=== PATIENT | female | born 1940 | race Caucasian/White ===

== ENCOUNTER → 2018-03-28 | Outpatient (CLI) | payer OTHER, BC ==
[~2018-03-28] MED LIST: ALBUTEROL INH; AMBEREN; CALTRATE-600 W1 EACH PO; CLARITIN10 MG PO; FIRST-OMEPR2 MG/1 ML PO; FLEXERIL PO; HYDROCHLOROTHIA25 M1 PO; HYDROCODONE-CH473 ML; IBUPROFEN 800800 M1 PO; IRON; IRON325 PO; MINOCYCLINE HC100 M2; MIRALAX17 GM PO; OMEPRAZOLE PO; PEPCID40 MG PO; POTASSIUM99 M1; VOLTAREN GEL 1100 G1 TOP; ZOLOFT 50 MG TA50 M1; ZYRTEC10 M2 PO; [UNRECOGNIZED DRUG - REMARK] PO
--- NOTE | 2018-03-28 15:55 | 2DMMODE ---
[place] [address] 2 D/M-MODE ECHOCARDIOGRAM Name: FLAQUITO GRIFFIN Room: [facility]#: [id number] Admission: 03/28/18 Attend Phys: Ann-Marie Funez Discharge: Date of : 42 Date of Service: 03/28/18 1555 Report #: [id number] THIS REPORT FOR: //name// APPROVED REPORT Study performed: 03/28/2018 14:15:44 EXAM: Comprehensive 2D, Doppler, and color-flow Echocardiogram Patient Location: Out-Patient Status: routine BSA: 1.84 HR: 70 bpm BP: 130/80 mmHg Other Information Study Quality: Good Indications Dyspnea 2D Dimensions IVSd: 11.25 (7-11mm) LVOT Diam: 20.10 (18-24mm) LVDd: 48.93 mm PWd: 11.25 (7-11mm) Ascending Ao: 30.55 (22-36mm) LVDs: 37.32 (25-40mm) Aortic Root: 29.46 mm Volumes Left Atrial Volume (Systole) LA ESV Index: 15.10 mL/m2 Aortic Valve AoV Peak Artur.: 0.84 m/s AO Peak Gr.: 2.84 mmHg LVOT Max P.92 mmHg AO Mean Gr.: 1.54 mmHg LVOT Mean P.40 mmHg LVOT Max V: 0.85 m/s AO V2 VTI: 20.02 cm LVOT Mean V: 0.54 m/s JOEY (VTI): 2.57 cm2 LVOT V1 VTI: 16.22 cm Mitral Valve E/A Ratio: 0.50 MV Decel. Time: 319.08 ms MV E Max Artur.: 0.48 m/s MV PHT: 92.53 [place] [address] 2 D/M-MODE ECHOCARDIOGRAM Name: FLAQUITO GRIFFIN Room: [facility]#: [id number] Admission: 03/28/18 Attend Phys: Ann-Marie Funez Discharge: Date of : 42 Date of Service: 03/28/18 1555 Report #: [id number] MVA (PHT): 2.38 cm2 TDI E/Lateral E': 5.33 E/Medial E': 6.00 Medial E' Artur.: 0.08 m/s Lateral E' Artur.: 0.09 m/s Pulmonary Valve PV Peak Artur.: 0.90 m/s PV Peak Gr.: 3.23 mmHg Left Ventricle The left ventricle is normal size. There is normal LV segmental wall motion. There is normal left ventricular wall thickness. Left ventricular systolic function is mildly decreased. LVEF is 45%. Grade I - abnormal relaxation pattern. Right Ventricle The right ventricle is normal size. The right ventricular systolic function is normal. Atria The left atrium size is normal. The right atrium size is normal. Aortic Valve Mild aortic valve sclerosis. Trace aortic regurgitation. There is no aortic valvular stenosis. Mitral Valve The mitral valve is normal in structure. Mild mitral regurgitation. No evidence of mitral valve stenosis. Tricuspid Valve The tricuspid valve is normal in structure. There is no tricuspid valve regurgitation noted. Pulmonic Valve The pulmonary valve is normal in structure. Mild pulmonic regurgitation. Great Vessels The aortic root is normal in size. IVC is normal in size and collapses >50% with inspiration. Pericardium There is no pericardial [place] [address] 2 D/M-MODE ECHOCARDIOGRAM Name: FLAQUITO GRIFFIN [id number] Admission: 03/28/18 Attend Phys: Ann-Marie Funez Discharge: Date of : 42 Date of Service: 03/28/18 1555 Report #: [id number] <Conclusion> The left ventricle is normal size. There is normal left ventricular wall thickness. Left ventricular systolic function is mildly decreased. LVEF is 45%. Grade I - abnormal relaxation pattern. The right ventricle is normal size. The left atrium size is normal. Mild aortic valve sclerosis. Trace aortic regurgitation. There is no aortic valvular stenosis. The mitral valve is normal in structure. Mild mitral regurgitation. The tricuspid valve is normal in structure. IVC is normal in size and collapses >50% with inspiration. There is no pericardial effusion. There is normal LV segmental wall motion. <ELECTRONICALLY SIGNED> By: Carson Zamora MD, FACC 03/28/18 1555 1555 1555 Carson Zamora MD, FACC /INF
== END ==
LOC: M.CRD 13:53
DX: I08.0 Rheumatic disorders of both mitral and aortic valves (principal); R60.0 Localized edema; J45.20 Mild intermittent asthma, uncomplicated

== ENCOUNTER → 2018-04-22 | Outpatient (CLI) | payer OTHER, BC ==
[2018-04-22 13:04] LABS: CALCIUM 10.2 mg/dL (8.5-10.1); CREATININE 1.1 mg/dL (0.6-1.3); POTASSIUM 3.7 mmol/L (3.5-5.1)
== END ==
LOC: M.LAB 12:21
PROVIDERS: Nurse Practitioner
DX: R60.9 Edema, unspecified (principal); R06.02 Shortness of breath; R53.83 Other fatigue

== ENCOUNTER → 2018-09-13 | Outpatient (CLI) | payer OTHER, BC ==
--- NOTE | 2018-09-23 07:55 | SLEEP ---
[address] [address] SLEEP STUDY REPORT Name: FLAQUITO GRIFFIN Room: [facility]#: [id number] Admission: 09/13/18 Attend Phys: Kristina Green RN Discharge: Date of : 42 Report #: [id number] THIS REPORT FOR: //name// CC: Gwyn Green This study has been reviewed in its entirety by a board certified sleep specialist DATE OF SERVICE: 09/13/2018 TYPE OF REPORT: Sleep study. REFERRING PHYSICIAN: JOO Gan. The patient is a 77-year-old who weighs 206 pounds with a BMI of 44.6. The patient's [place] score was 2. The patient underwent a home sleep study performed at [facility]. Total recording time was 531 minutes. During the night study, the patient had 69 obstructive apneas, no central or mixed apneas and 55 hypopneas. The patient's apnea-hypopnea index was 14 per hour with a supine index of 14 per hour as well. Nocturnal oximetry study revealed an average oxygen saturation of 94% with lows of 82%. Twenty minutes were spent at oxygen saturation less than 90%. Mean heart rate was 72 beats per minute. IMPRESSION: 1. Mild sleep apnea-hypopnea syndrome with an apnea/hypopnea index of 14 per hour. 2. Nocturnal hypoxia secondary to obstructive sleep apnea. RECOMMENDATIONS: 1. Weight loss is initially advised. 2. If the patient remains clinically symptomatic or has other comorbid symptoms, then consider treating the patient's sleep apnea with either oral appliance as recommended by the dentist versus a trial of CPAP titration. 3. The patient should be followed up after treatment to assess compliance and to document clinical improvement. 4. Avoid HOT [place]LE [place] [address] SLEEP STUDY REPORT Name: FLAQUITO GRIFFIN Room: [facility]#: [id number] Admission: 09/13/18 Attend Phys: Kristina Green RN Discharge: Date of : 42 Report #: [id number] 5. Cautioned regarding driving until symptoms of sleep apnea resolve with the above recommendations. <ELECTRONICALLY SIGNED> By: Buzz Underwood MD 09/23/18 0755 [id number] 2230Buzz Underwood MD /nt
== END ==
LOC: M.SLEEPLAB 11:00
DX: G47.33 Obstructive sleep apnea (adult) (pediatric) (principal); R09.02 Hypoxemia; R53.82 Chronic fatigue, unspecified

== ENCOUNTER → 2019-03-15 | Outpatient (CLI) | payer OTHER, BC | LOC: M.NUC 03-08 14:01 | DX: E83.52 Hypercalcemia (principal); R05 Cough; K21.9 Gastro-esophageal reflux disease without esophagitis; J45.909 Unspecified asthma, uncomplicated; G47.33 Obstructive sleep apnea (adult) (pediatric); I10 Essential (primary) hypertension; F32.9 Major depressive disorder, single episode, unspecified; Z79.899 Other long term (current) drug therapy; Z88.2 Allergy status to sulfonamides; Z88.8 Allergy status to other drugs, medicaments and biological substances ==

== ENCOUNTER → 2019-06-13 | Outpatient (CLI) | payer OTHER, BC ==
[2019-06-13 14:35] LABS: CALCIUM 10.1 mg/dL (8.5-10.1); CREATININE 1.2 mg/dL (0.6-1.3); POTASSIUM 4.2 mmol/L (3.5-5.1)
== END ==
LOC: M.LAB 13:38
PROVIDERS: Nurse Practitioner
DX: R06.02 Shortness of breath (principal)

== ENCOUNTER → 2019-06-27 | Outpatient (CLI) | payer OTHER, BC ==
--- NOTE | 2019-06-27 13:51 | 2DMMODE ---
[place] [address] 2 D/M-MODE ECHOCARDIOGRAM Name: FLAQUITO GRIFFIN Room: [facility]#: [id number] Admission: 06/27/19 Attend Phys: Ann-Marie Funez Discharge: Date of : 42 Date of Service: 06/27/19 1351 Report #: [id number] THIS REPORT FOR: //name// APPROVED REPORT Study performed: 06/27/2019 10:02:40 EXAM: Comprehensive 2D, Doppler, and color-flow Echocardiogram Patient Location: Out-Patient BSA: 1.81 HR: 70 bpm BP: 142/88 mmHg Other Information Study Quality: Good Indications Dyspnea 2D Dimensions IVSd: 11.94 (7-11mm) LVOT Diam: 20.63 (18-24mm) LVDd: 45.31 mm PWd: 11.05 (7-11mm) Ascending Ao: 28.85 (22-36mm) LVDs: 26.37 (25-40mm) Aortic Root: 28.52 mm Volumes Left Atrial Volume (Systole) LA ESV Index: 13.70 mL/m2 Aortic Valve AoV Peak Artur.: 1.01 m/s AO Peak Gr.: 4.12 mmHg LVOT Max P.44 mmHg AO Mean Gr.: 1.99 mmHg LVOT Mean P.51 mmHg LVOT Max V: 0.93 m/s AO V2 VTI: 18.94 cm LVOT Mean V: 0.55 m/s JOEY (VTI): 3.18 cm2 LVOT V1 VTI: 18.00 cm Mitral Valve E/A Ratio: 0.65 MV Decel. Time: 252.78 ms MV E Max Artur.: 0.59 m/s MV PHT: 73.31 ms MVA (PHT): 3.00 cm2 [place] [address] 2 D/M-MODE ECHOCARDIOGRAM Name: FLAQUITO GRIFFIN Room: [facility]#: [id number] Admission: 06/27/19 Attend Phys: Ann-Marie Funez Discharge: Date of : 42 Date of Service: 06/27/19 1351 Report #: [id number] TDI E/Lateral E': 7.38 E/Medial E': 7.38 Medial E' Artur.: 0.08 m/s Lateral E' Artur.: 0.08 m/s Pulmonary Valve PV Peak Artur.: 0.79 m/s PV Peak Gr.: 2.49 mmHg Left Ventricle The left ventricle is normal size. There is global hypokinesis of the left ventricle. There is normal left ventricular wall thickness. Left ventricular systolic function is mildly decreased. LVEF is 40-45%. Grade I - abnormal relaxation pattern. Right Ventricle The right ventricle is normal size. The right ventricular systolic function is normal. Atria The left atrium size is normal. The right atrium size is normal. Aortic Valve The aortic valve is normal in structure. Mild aortic regurgitation. There is no aortic valvular stenosis. Mitral Valve The mitral valve is normal in structure. Mild mitral regurgitation. No evidence of mitral valve stenosis. Tricuspid Valve The tricuspid valve is normal in structure. There is no tricuspid valve regurgitation noted. Pulmonic Valve The pulmonary valve is normal in structure. There is no pulmonic valvular regurgitation. Great Vessels The aortic root is normal in size. IVC is normal in size and collapses >50% with inspiration. Pericardium There is no [place] [address] 2 D/M-MODE ECHOCARDIOGRAM Name: FLAQUITO GRIFFIN [id number] Admission: 06/27/19 Attend Phys: Ann-Marie Funez Discharge: Date of : 42 Date of Service: 06/27/19 135 Report #: [id number] <Conclusion> LVEF is 40-45%. There is global hypokinesis of the left ventricle. Mild aortic regurgitation. Mild mitral regurgitation. <ELECTRONICALLY SIGNED> By: Boone Wong MD, [facility] 06/27/19 135 135 50 Boone Wong MD, FACC /INF
== END ==
LOC: M.CRD 09:37
DX: I08.0 Rheumatic disorders of both mitral and aortic valves (principal); F32.9 Major depressive disorder, single episode, unspecified; E11.9 Type 2 diabetes mellitus without complications; K21.9 Gastro-esophageal reflux disease without esophagitis; G47.30 Sleep apnea, unspecified; Z79.899 Other long term (current) drug therapy

== ENCOUNTER 2019-09-15 09:41 | Emergency (ER) | payer OTHER, BC ==
[~2019-09-15] VITALS: Ht 142.2 cm; Wt 95.3 kg
[2019-09-15] MEDS ORDERED: BLOOD PRESSURE (09:53)
[2019-09-15 10:18] LABS: INFLUENZA A ANTIGEN Negative (Negative); INFLUENZA B ANTIGEN Negative (Negative)
[2019-09-15 11:28] LABS: ABSOLUTE EOSINOPHILS 0.1 thou/uL (0.0-0.7); ABSOLUTE LYMPHOCYTES 0.7 thou/uL (0.8-5.3); ABSOLUTE MONOCYTES 0.4 thou/uL (0.0-1.2); ABSOLUTE NEUTROPHILS 2.6 thou/uL (1.6-8.1); BASOPHILS 1.3 %; EOSINOPHILS 3.7 %; HEMATOCRIT 36.8 % (37.0-47.0); HEMOGLOBIN 12.6 gm/dL (12.0-15.0); LYMPHOCYTES 17.5 %; MCH 28.4 pg (26.0-34.0); MCHC 34.2 g/dL (28.0-37.0); MCV 83.2 fL (80.0-100.0); MONOCYTES 11.2 %; MPV 9.5 fl. (7.2-11.1); NUCLEATED RBCS 0 /100WBC; PLATELET COUNT* 159 thou/uL (150-400); POLYS 66.3 %; RBC 4.42 mil/uL (4.20-5.00); RDW-CV 15.1 % (10.5-14.5); WBC 3.9 thou/uL (4.0-11.0)
[2019-09-15 11:32] LABS: CALCIUM 9.6 mg/dL (8.5-10.1); CREATININE 1.1 mg/dL (0.6-1.3); POTASSIUM 4.1 mmol/L (3.5-5.1)
[2019-09-15] MEDS ORDERED: MUCUS RELIEF1200 MG PO (11:45)
[2019-09-15 11:46] LABS: ALBUMIN 3.6 g/dL (3.4-5.0); TOTAL BILIRUBIN 0.4 mg/dL (<0.1-1.0); TOTAL PROTEIN 7.2 g/dL (6.4-8.2)
[2019-09-15 11:54] VITALS: BP 140/49
== END 2019-09-15 11:55 | disposition home or self-care (01) ==
LOC: M.ERS 09:41
PROVIDERS: Personal Emergency Response Attendant
DX: J06.9 Acute upper respiratory infection, unspecified (principal); I48.91 Unspecified atrial fibrillation; E66.9 Obesity, unspecified; M81.0 Age-related osteoporosis without current pathological fracture; Z68.42 Body mass index [BMI] 45.0-49.9, adult; Z87.442 Personal history of urinary calculi; Z90.710 Acquired absence of both cervix and uterus; Z88.1 Allergy status to other antibiotic agents; Z88.2 Allergy status to sulfonamides; Z88.6 Allergy status to analgesic agent; Z88.8 Allergy status to other drugs, medicaments and biological substances

== ENCOUNTER 2020-09-16 11:47 | Emergency (ER) | payer OTHER, BC ==
[~2020-09-16] VITALS: Ht 144.8 cm; Wt 94.3 kg
[~2020-09-16 11:47] MED LIST changes: +BLOOD PRESSURE; +MUCUS RELIEF1200 MG PO
[2020-09-16] MEDS ORDERED: LASIX 40 MG TAB40 MG PO (12:18)
[2020-09-16 12:24] LABS: URINE BILIRUBIN NEGATIVE (Negative); URINE BLOOD TRACE (Negative); URINE CLARITY CLEAR; URINE COLOR YELLOW; URINE GLUCOSE-RANDOM NEGATIVE (Negative); URINE KETONES NEGATIVE (Negative); URINE LEUKOCYTES-REFLEX TRACE (Negative); URINE NITRITE-REFLEX NEGATIVE (Negative); URINE PROTEIN NEGATIVE (Negative); URINE SPECIFIC GRAVITY >= 1.030 (1.005-1.030); URINE UROBILINOGEN 0.2 E.U./dl (0.2-1.0)
[2020-09-16 12:33] LABS: BACTERIA-REFLEX 1-9 Few /HPF (None Seen); CASTS None Seen /LPF (None Seen); CRYSTALS None Seen /LPF (None Seen); MUCUS None Seen strn/LPF (None Seen); SQUAMOUS >10 Many /LPF (0-3); URINE RBC 0-2 Rare /HPF (0-2); URINE WBC-REFLEX 0-5 Rare /HPF (0-5)
[2020-09-16 12:38] LABS: ABSOLUTE BASOPHILS 0.1 thou/uL (0.0-0.2); ABSOLUTE EOSINOPHILS 0.1 thou/uL (0.0-0.7); ABSOLUTE LYMPHOCYTES 1.3 thou/uL (0.8-5.3); ABSOLUTE MONOCYTES 0.4 thou/uL (0.0-1.2); ABSOLUTE NEUTROPHILS 4.3 thou/uL (1.6-8.1); BASOPHILS 1.4 %; EOSINOPHILS 1.6 %; HEMATOCRIT 37.8 % (37.0-47.0); HEMOGLOBIN 12.6 gm/dL (12.0-15.0); MCH 27.9 pg (26.0-34.0); MCHC 33.4 g/dL (28.0-37.0); MCV 83.5 fL (80.0-100.0); MONOCYTES 6.2 %; MPV 9.7 fl. (7.2-11.1); NUCLEATED RBCS 0 /100WBC; PLATELET COUNT* 183 thou/uL (150-400); POLYS 69.8 %; RBC 4.53 mil/uL (4.20-5.00); RDW-CV 15.9 % (10.5-14.5); WBC 6.2 thou/uL (4.0-11.0)
[2020-09-16 12:46] LABS: CALCIUM 9.6 mg/dL (8.5-10.1); CREATININE 1.2 mg/dL (0.6-1.3); POTASSIUM 4.1 mmol/L (3.5-5.1)
[2020-09-16 12:51] LABS: ALBUMIN 3.4 g/dL (3.4-5.0); TOTAL BILIRUBIN 0.4 mg/dL (<0.1-1.0); TOTAL PROTEIN 6.7 g/dL (6.4-8.2)
[2020-09-16] MEDS ORDERED: MAGNESIUM250 M1 PO (13:16)
[2020-09-16] MEDS ORDERED: BIDIL TABLET1 EACH PO (13:16)
[2020-09-16] MEDS ORDERED: ALLEGRA ALLERGY60 MG PO (13:16)
[2020-09-16] MEDS ORDERED: POTASSIUM99 M1 PO (13:17)
[2020-09-16] MEDS ORDERED: ALBUTEROL2.5 MG/0.1 INH (13:17)
[2020-09-16] MEDS ORDERED: TESSALON PERLE100 M1 PO (13:17)
[2020-09-16] MEDS ORDERED: CARVEDILOL12.5 MG (13:17)
[2020-09-16] MEDS ORDERED: SINGULAIR4 M1 PO (13:18)
[2020-09-16] MEDS ORDERED: MACROBID 100 M100 M1 PO (13:48)
[2020-09-16] MEDS ORDERED: ZOFRAN ODT4 MG PO (13:48)
[2020-09-16 14:09] VITALS: BP 135/87
--- NOTE | 2020-09-16 17:38 | EKG ---
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[place] : 1940 Requested By: Gloria Alfonso Order Number: [id number] MD: Carson Zamora Measurements Intervals [place] Rate: 128 P: NE: QRS: -30 QRSD: 91 T: 73 QT: 302 QTc: 441 Interpretive Statements Atrial fibrillation Ventricular premature complex Left axis deviation Abnormal R-wave progression, early transition Consider anterior infarct Baseline wander in lead(s) II,III,aVF Compared to ECG 12/31/2005 11:41:49 Ventricular premature complex(es) now present Left-axis deviation now present Sinus rhythm no longer present Short NE interval no longer present Myocardial infarct finding still present Electronically Signed On 09-16-2020 17:38:25 CDT by Carson Zamora [email or web address] <ELECTRONICALLY SIGNED> By: Carson Zamora MD, [facility] 09/16/20 1738 1205 1205 Carson Zamora MD, [facility] /EPI
== END 2020-09-16 14:09 | disposition home or self-care (01) ==
LOC: M.ERS 11:47
PROVIDERS: Nurse Practitioner Family
DX: N39.0 Urinary tract infection, site not specified (principal); K57.32 Diverticulitis of large intestine without perforation or abscess without bleeding; I48.91 Unspecified atrial fibrillation; E66.9 Obesity, unspecified; Z68.42 Body mass index [BMI] 45.0-49.9, adult; Z88.5 Allergy status to narcotic agent; Z88.1 Allergy status to other antibiotic agents; Z88.2 Allergy status to sulfonamides; Z88.6 Allergy status to analgesic agent; Z88.8 Allergy status to other drugs, medicaments and biological substances; Z87.442 Personal history of urinary calculi

== ENCOUNTER → 2020-11-15 | Outpatient (CLI) | payer OTHER, BC ==
[~2020-11-15] MED LIST changes: +ALBUTEROL2.5 MG/0.1 INH; +ALLEGRA ALLERGY60 MG PO; +BIDIL TABLET1 EACH PO; +CARVEDILOL12.5 MG; +LASIX 40 MG TAB40 MG PO; +MACROBID 100 M100 M1 PO; +MAGNESIUM250 M1 PO; +POTASSIUM99 M1 PO; +SINGULAIR4 M1 PO; +TESSALON PERLE100 M1 PO; +ZOFRAN ODT4 MG PO
== END ==
LOC: M.ULTRA 09:00
PROVIDERS: ATTEND Family Medicine
DX: R74.8 Abnormal levels of other serum enzymes (principal); K21.9 Gastro-esophageal reflux disease without esophagitis; J45.909 Unspecified asthma, uncomplicated; G47.33 Obstructive sleep apnea (adult) (pediatric); I10 Essential (primary) hypertension; F32.9 Major depressive disorder, single episode, unspecified; Z79.899 Other long term (current) drug therapy; Z88.1 Allergy status to other antibiotic agents; Z88.5 Allergy status to narcotic agent; Z88.8 Allergy status to other drugs, medicaments and biological substances; Z88.2 Allergy status to sulfonamides

== ENCOUNTER → 2020-11-28 | Outpatient (CLI) | payer OTHER, BC | LOC: M.CT 08:52 | PROVIDERS: ATTEND Family Medicine | DX: R74.8 Abnormal levels of other serum enzymes (principal); K76.0 Fatty (change of) liver, not elsewhere classified; R19.7 Diarrhea, unspecified; R05 Cough; J45.20 Mild intermittent asthma, uncomplicated; Z91.09 Other allergy status, other than to drugs and biological substances; I10 Essential (primary) hypertension ==

== ENCOUNTER 2021-01-28 13:13 | Inpatient (IN) | payer OTHER, BC ==
[~2021-01-28] VITALS: Ht 149.9 cm; Wt 86.6 kg
--- NOTE | ~2021-01-28 | EKG ---
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1940 Requested By: Boone Wong Order Number: [id number] Reading MD: Measurements Intervals [place] Rate: 114 P: IA: QRS: 112 QRSD: 99 T: -29 QT: 316 QTc: 436 Interpretive Statements Atrial fibrillation Left posterior fascicular block Low voltage, precordial leads Borderline repolarization abnormality Compared to ECG 01/28/2021 13:30:25 Left posterior fascicular block now present Low QRS voltage now present Left anterior fascicular block no longer present Myocardial infarct finding no longer present T-wave abnormality no longer present [email or web address] By: 1735 1735 Epiphany EpiphanyMD /SUZAN
[2021-01-28 13:30] VITALS: BP 120/75
--- NOTE | 2021-01-28 13:36 | NUR ---
1320 PT UP TO ER BR, AMBULATORY INDEPENDENTLY. PT STATES SHE WAS WASHING HER HANDS AND THE SINK FELL. OBSERVED PT ON THE FLOOR, SINK ON FLOOR RIGHT BY THE PATIENT, WATER RUNNING ON FLOOR. OBSERVED PATIENT ON A SITTING POSITION ON THE FLOOR. OBSERVED A ABRASION ON PT'S RIGHT ELBOW. PT STATES PAIN 1/10, STINGING SENSATION. PT STATES THE SINK DID NOT LAND ON HER BUT LANDED RIGHT BESIDE HER. PT DID FALL AND LANDED ON HER BUTTOCKS. PT STATES THE ONLY PAIN SHE HAS IS HER RIGHT ELBOW. STAFF X 3 TRANSFERRED PT FROM FLOOR TO W/C, THEN TRANSFERRED PT FROM W/C TO STRETCHER TO ER RM #10. SPONGE BATH GIVEN TO PT TO CLEAN PT FROM DIRTY WATER FROM SINK. PT TOLERATED PROCEDURE WELL. [facility]ILDR[facility] [employer] ATTENDANT SHIRLEY NOTIFIED
[2021-01-28 13:41] LABS: ABSOLUTE BASOPHILS 0.1 thou/uL (0.0-0.2); ABSOLUTE MONOCYTES 0.7 thou/uL (0.0-1.2); ABSOLUTE NEUTROPHILS 4.5 thou/uL (1.6-8.1); BASOPHILS 1.2 %; EOSINOPHILS 0.8 %; HEMATOCRIT 40.4 % (37.0-47.0); HEMOGLOBIN 13.5 gm/dL (12.0-15.0); LYMPHOCYTES 16.1 %; MCH 27.7 pg (26.0-34.0); MCHC 33.3 g/dL (28.0-37.0); MCV 83.1 fL (80.0-100.0); MONOCYTES 11.3 %; MPV 9.2 fl. (7.2-11.1); NUCLEATED RBCS 0 /100WBC; PLATELET COUNT* 151 thou/uL (150-400); POLYS 70.6 %; RBC 4.86 mil/uL (4.20-5.00); RDW-CV 16.1 % (10.5-14.5); WBC 6.4 thou/uL (4.0-11.0)
[2021-01-28 13:52] LABS: CREATININE 1.3 mg/dL (0.6-1.3); POTASSIUM 3.8 mmol/L (3.5-5.1)
[2021-01-28 13:57] LABS: ALBUMIN 3.5 g/dL (3.4-5.0); TOTAL BILIRUBIN 0.4 mg/dL (<0.1-1.0); TOTAL PROTEIN 6.7 g/dL (6.4-8.2)
[2021-01-28 20:00] VITALS: BP 142/78
[2021-01-29] VITALS (7 sets, daily range): BP systolic 114–165; BP diastolic 51–100
[2021-01-29 01:46] LABS: HEMATOCRIT 40.7 % (37.0-47.0); HEMOGLOBIN 13.8 gm/dL (12.0-15.0); MCH 28.2 pg (26.0-34.0); MCHC 33.8 g/dL (28.0-37.0); MCV 83.3 fL (80.0-100.0); MPV 9.1 fl. (7.2-11.1); RBC 4.88 mil/uL (4.20-5.00); WBC 5.4 thou/uL (4.0-11.0)
[2021-01-29 02:00] LABS: CALCIUM 8.8 mg/dL (8.5-10.1); CREATININE 1.1 mg/dL (0.6-1.3); POTASSIUM 3.7 mmol/L (3.5-5.1)
--- NOTE | 2021-01-29 09:34 | EKG ---
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1940 Requested By: Cory Ramírez Order Number: [id number] MD: Boone Wong Measurements Intervals [place] Rate: 106 P: MI: QRS: -49 QRSD: 101 T: 90 QT: 327 QTc: 435 Interpretive Statements Atrial fibrillation Left anterior fascicular block Anterior infarct, old Nonspecific T abnormalities, lateral leads Compared to ECG 09/16/2020 12:05:57 Myocardial infarct finding still present Electronically Signed On 01-29-2021 9:33:53 CDT by Boone Wong [email or web address] <ELECTRONICALLY SIGNED> By: Boone Wong MD, FACC 01/29/21 0933 1330 1330 Boone Wong MD, FAC /EPI
--- NOTE | 2021-01-29 14:22 | NUR ---
RECIEVED REPORT FROM CB WATSON IN ER OF EXPECTED ADMISSION AT 1131- DX: PE, DIARRHEA, WEAKNESS, ARF- PT ARRIVED TO UNIT ROOM 221 VIA BED AT 1200- BIOPSYCHOLOGIST PLACED NOTED A-FIB, RATE CONTROLLED- PT A&O X4- CONT OF B/B- SBA WITH TRANSFERS FOR SAFETY- LCTA, DYSPNEA NOTED ON EXERTION- VSS, O2 SAT 98% ON RA- ABD SOFT/OBESE/NON-TEDNER, BS ACTIVE- DIRREHA NOTED THIS SHIFT- C-DIFF NOTED TO RESULT NEGATIVE- CARDIO CONSULTED FOR PIPIDA CLEARANCE AND GI R/T DIARRHEA- 2+ BLE PITTING EDEMA NOTED- BS AT TIME OF ADMISSION NOTED TO BE 170- PT DENIES ANY OPEN SOARS/WOUNDS- DENIES ANY C/O PAIN- CALL LIGHT AND PERSONAL BELONGINGS WITH IN REACH- ALL NEEDS MET AT THIS TIME
[2021-01-29 14:52] LABS: AMYLASE 42 U/L (25-115); LIPASE 236 U/L (73-393)
--- NOTE | 2021-01-29 16:20 | 2DMMODE ---
[place] [address] 2 D/M-MODE ECHOCARDIOGRAM Name: FLAQUITO GRIFFIN Room: [address] IN [facility]#: [id number] Admission: 01/28/21 Attend Phys: Terry Fry Discharge: Date of : 42 Date of Service: 01/29/21 1620 Report #: [id number] THIS REPORT FOR: cc: Ena Landaverde,Ena Aguilar,Boone Doherty MD [facility] ~ APPROVED REPORT Study performed: 01/29/2021 14:48:03 EXAM: Comprehensive 2D, Doppler, and color-flow Echocardiogram Patient Location: In-Patient Room #: [facility] Status: routine BSA: 1.80 HR: 101 bpm BP: 151/94 mmHg Rhythm: Atrial Fibrillation Other Information Study Quality: Good Indications Atrial Fibrillation 2D Dimensions IVSd: 8.54 (7-11mm) LVOT Diam: 20.38 (18-24mm) LVDd: 54.52 mm PWd: 8.33 (7-11mm) Ascending Ao: 30.86 (22-36mm) LVDs: 28.11 (25-40mm) Aortic Root: 30.70 mm Volumes Left Atrial Volume (Systole) LA ESV Index: 37.20 mL/m2 Aortic Valve AoV Peak Artur.: 1.05 m/s AO Peak Gr.: 4.45 mmHg LVOT Max P.14 mmHg AO Mean Gr.: 2.55 mmHg LVOT Mean P.57 mmHg LVOT Max V: 0.89 m/s AO V2 VTI: 16.71 cm LVOT Mean V: 0.59 m/s JOEY (VTI): 2.72 cm2 LVOT V1 VTI: 13.94 [place] [address] 2 D/M-MODE ECHOCARDIOGRAM Name: FLAQUITO GRIFFIN Room: [address] IN [facility].#: [id number] Admission: 01/28/21 Attend Phys: Terry Fry Discharge: Date of : 42 Date of Service: 01/29/21 1620 Report #: [id number] TDI Lateral E' Artur.: 0.12 m/s Pulmonary Valve PV Peak Artur.: 0.74 m/s PV Peak Gr.: 2.21 mmHg Tricuspid Valve RAP Estimate: 5.00 mmHg TR Peak Gr.: 29.18 mmHg RVSP: 34.00 mmHg PA Pressure: 34.00 mmHg Left Ventricle Left ventricle is mildly dilated. There is global hypokinesis of the left ventricle. There is normal left ventricular wall thickness. Left ventricular systolic function is mildly decreased. LVEF is 25-30%. This study is not technically sufficient to allow evaluation of the LV diastolic function due to atrial fibrillation. Right Ventricle The right ventricle is normal size. The right ventricular systolic function is normal. Atria Left atrium is mildly dilated. The right atrium size is normal. Aortic Valve Mild aortic valve sclerosis. Mild aortic regurgitation. There is no aortic valvular stenosis. Mitral Valve The mitral valve is normal in structure. Moderate mitral regurgitation. No evidence of mitral valve stenosis. Tricuspid Valve The tricuspid valve is normal in structure. Moderate tricuspid regurgitation. estimated pa pressure 35 mm Hg Pulmonic Valve The pulmonary valve is normal in structure. Trace pulmonic regurgitation. Great Vessels The aortic root is normal in size. IVC is normal in size and collapses >50% [place] [address] 2 D/M-MODE ECHOCARDIOGRAM Name: FLAQUITO GRIFFIN Room: [address]#: [id number] Admission: 01/28/21 Attend Phys: Terry Fry Discharge: Date of : 42 Date of Service: 01/29/21 1620 Report #: [id number] Pericardium There is no pericardial effusion. <Conclusion> Left ventricle is mildly dilated. LVEF is 25-30%. Left atrium is mildly dilated. Mild aortic regurgitation. Moderate mitral regurgitation. Moderate tricuspid regurgitation. estimated pa pressure 35 mm Hg <ELECTRONICALLY SIGNED> By: Boone Wong MD, [facility] 01/29/21 1620 162 19 Boone Wong MD, [facility] /INF
[2021-01-30 00:55] VITALS: BP 115/56
[2021-01-30 03:59] VITALS: BP 112/56
[2021-01-30 04:56] LABS: CALCIUM 8.8 mg/dL (8.5-10.1); CREATININE 1.1 mg/dL (0.6-1.3); POTASSIUM 3.7 mmol/L (3.5-5.1)
--- NOTE | 2021-01-30 07:07 | NUR ---
PT HAD SEVERAL SMALL EPISODES OF DIARRHEA THIS SHIFT. CONTINUES TO BE AFIB ON CLASSROOM PARAPROFESSIONAL. HOURLY ROUNDING COMPLETED. HIGH FALL PRECAUTION IN PLACE. CALL LIGHT WITHIN REACH.
[2021-01-30 07:51] VITALS: BP 122/72
--- NOTE | 2021-01-30 08:50 | NUR ---
ASSUMED CARE OF PT THIS AM AROUND 07- RN CLINICAL APPEALS IN PLACE ORDERED, TRACING A-FIB/RATE CONTROLLED- UPON ASSESSMENT PT NOTED TO BE RESTING IN BED- PT A&O X4-CONT OF URINE, OCCASSIONAL INCONT BM NOTED R/T DIARRHEA- SBA WITH TRANSFES FOR SAFETY- EXPIRATORY WHEEZES NOTED- DYSPNEA NOTED WITH MINIMAL EXERTION- VSS, O2 SAT 97% ON RA- ABD SOFT/OBESE/NON-TENDER, BS X4 QUADS- INCONT BM NOTED THIS AM- POOR APPETITE NOTED R/T NAUSEA, PRN ZOFRAN GIVEN THIS AM- 2+ BLE EDEMA NOTED- BS MONITORED INDICATED- DENIES ANY PAIN- CALL LIGHT AND PERSONAL BELONGINGS WITH IN REACH- HOURLY ROUNDS IN PLACE R/T SAFETY/NEEDS- ALL NEEDS MET AT THIS TIME
--- NOTE | 2021-01-30 09:22 | NUR ---
Nutrition: Pt admitted with diarrhea, weakness. Consult for poor appetite. Wt: 205#. Regular diet ordered. Pt has poor appetite R/T nausea. Zofran helps. Labs: BG 135, alb 3.5. H/o DM, HTN, GERD, OBE, afib. Meds noted. Pt appears at low risk. Encourage good meal intake.
--- NOTE | 2021-01-30 11:40 | EKG ---
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1940 Requested By: Terry Fry Order Number: [id number] MD: Charli Orourke Measurements Intervals [place] Rate: 114 P: TN: QRS: 112 QRSD: 99 T: -29 QT: 316 QTc: 436 Interpretive Statements Atrial fibrillation Left posterior fascicular block Low voltage, precordial leads Borderline repolarization abnormality Compared to ECG 01/28/2021 13:30:25 Left posterior fascicular block now present Low QRS voltage now present Left anterior fascicular block no longer present Myocardial infarct finding no longer present T-wave abnormality no longer present Electronically Signed On 01-30-2021 11:40:36 CDT by Charli Orourke [email or web address] <ELECTRONICALLY SIGNED> By: Leonides Orourke MD, [facility] 01/30/21 1140 1735 1735 Leonides Orourke MD, [facility] /EPI
[2021-01-30 11:49] VITALS: BP 106/49; BP 111/54
--- NOTE | 2021-01-30 15:04 | NUR ---
CM ASSESSMENT: PT A&O, INDEPENDENT WITH ADL'S, ACTIVE AND DRIVES. PT RESIDES AT HOME ALONE. PT INFORMS THAT SHE HAS A CLEANING LADY, AND HER BROTHER ASSIST WITH ANY THING ELSE IF SHE NEEDS IT. PT USES ROLLATOR IN THE COMMUNITY FOR LONGER DISTANCE AND A CANE FOR SHORTER DISTANCES. PT HAS PAST HX OF HH. PT HAS PAST HX OF SNF AT [facility], AND INPT ARU HX AT [facility]. CM WILL REMAIN AVAILABLE TO ASSIST AND FOLLOW NEEDED.
[2021-01-30 17:12] VITALS: BP 98/52
[2021-01-30 20:00] VITALS: BP 126/60
[2021-01-31] VITALS: BP 96/23
--- NOTE | 2021-01-31 01:56 | NUR ---
PT ALERT ORIENTED SOMEWHAT ANXIOUS. UP WITH ASSIST. ON RA. BOWL ATTENDANT TRACING AFIB. ATIVAN GIVEN FOR ANXIETY. MELATONIN GIVEN FOR INSOMNIA.
[2021-01-31 03:48] VITALS: BP 100/32
[2021-01-31 05:04] LABS: CALCIUM 8.9 mg/dL (8.5-10.1); CREATININE 1.4 mg/dL (0.6-1.3); POTASSIUM 3.7 mmol/L (3.5-5.1)
[2021-01-31 08:00] VITALS: BP 114/47
[2021-01-31 12:28] VITALS: BP 111/52
--- NOTE | 2021-01-31 14:53 | NUR ---
PLAN OF CARE: PHYSICIAN INFORMS OF PLAN FOR PT/OT TO SEE PT TO DETERMEINE D/C PLANNING NEEDS FOR THE PT. PT EVAL INDICATES THAT THE PT REQUIRES MIN ASSIST 30', AND RECOMMEND CONTINUED THERAPY FOR THE PT. CM SPOKE TO THE PT TO DISCUSS THIS AND PT STATES 'I'M NOT GOING ANYWHERE UNTIL THEY FIGURE OUT WHAT THE HELL IS WRONG WITH ME! AND I'M NOT GOING TO THE [facility]!'. CM INFORMED THE PT OF THE D/C PLANNING OPTIONS HOME WITH HH OR SNF. CM PROVIDED PT WITH PRINTED INFO FOR SNF AND PT INFORMS THAT WHEN SHE GOES HOME SHE WILL HAVE HH WITH [facility]. CM TO FAX [facility] CLINCIAL INFO TO [facility]. D/C HH ORDERS WILL NEED TO BE FAXED TO [facility] HH WHEN AVAILABLE. CM WILL REMAIN AVAILABLE TO ASSIST AND FOLLOW NEEDED. [facility] PHONE: [phone] FAX: [phone]
--- NOTE | 2021-01-31 14:53 | NUR ---
THIS TUBE MACHINE OPERATOR IS IN AGREEMENT WITH DOCUMENTED EVALUATION BY VERO CHOE FOR THIS DAY. CRISTIAN BRASWELLT
[2021-01-31 16:00] VITALS: BP 120/57
[2021-01-31 20:00] VITALS: BP 105/55
[2021-02-01 00:10] VITALS: BP 111/40
--- NOTE | 2021-02-01 04:17 | NUR ---
PT ALERT ORIENTED. UP TO BR WITH ASSIST OF ONE AND CANE. YEAST UNDER PANUS CLEANED WITH SOAP/WATER DRIED AND NYSTATIN APPLIED. DICTAPHONE MECHANIC TRACING SR/SB. HR DOWN TO MOSTLY 50S WITH SOME EPISOIDS IN THE 40S. 0300 CARDIZEM HELD FOR HR.
[2021-02-01 05:05] VITALS: BP 123/49
[2021-02-01 05:26] LABS: CREATININE 1.4 mg/dL (0.6-1.3); POTASSIUM 3.9 mmol/L (3.5-5.1)
[2021-02-01 08:00] VITALS: BP 108/55
[2021-02-01 12:00] VITALS: BP 102/58
[2021-02-01 16:00] VITALS: BP 111/62; BP 142/68
--- NOTE | 2021-02-01 18:25 | NUR ---
PT. AOX4, VSS, DENIES PAIN OR DISCOMFORT. PT. OOB TO CHAIR, DENIES GI DISCOMFORT. CALL LIGHT AND PERSONAL BELONGINGS PLACED WITHIN REACH. PT. IN STABLE CONDITION AT THIS TIME.
[2021-02-01 20:00] VITALS: BP 118/60
[2021-02-02 00:36] VITALS: BP 103/78; BP 146/61
--- NOTE | 2021-02-02 03:29 | NUR ---
PT ALERT ORIENTED. UP TO BR WITH ASSIST OF ONE AND A CANE. LORAZEPAM GIVEN HS FOR ANXIETY. NATIONAL RECRUITER TRACING AFIB. YEAST INFECTION CLEANED WITH SOAP/H2O DRIED AND NYSTATIN POWDER APPLIED.
[2021-02-02 04:00] VITALS: BP 115/53
--- NOTE | 2021-02-02 05:24 | NUR ---
PT'S RESPIRATORY STATUS BECOMES WORSE AT NIGHT. IN THE AM WHEEZES HEARD AND PT SEEMS MORE SOA.
[2021-02-02 05:25] LABS: CALCIUM 9.1 mg/dL (8.5-10.1); CREATININE 1.3 mg/dL (0.6-1.3); POTASSIUM 4.1 mmol/L (3.5-5.1)
[2021-02-02 08:00] VITALS: BP 125/59
[2021-02-02 11:02] VITALS: BP 125/59
[2021-02-02 11:12] VITALS: BP 125/59
[2021-02-02] MEDS ORDERED: CARDIZEM CD120 MG PO (12:55)
[2021-02-02] MEDS ORDERED: ELIQUIS5 MG PO (12:55)
[2021-02-02] MEDS ORDERED: SPIRONOLACTONE25 MG PO (12:55)
[2021-02-02 13:01] VITALS: BP 125/59
--- NOTE | 2021-02-02 14:31 | NUR ---
PT. AOX4, VSS, DENIES PAIN. COUGH RESOLVED BY MEDS. DC ORDERS RECEIVED. DC PACKET PROVIDED AND EXPLAINED, PT VERBALIZED UNDERSTANDING. PT. LEFT BY WHEELCHAIR FROM ER ENTRANCE, PICKED UP BY BROTHER BY CAR, WITH PERSONAL BELONGINGS. PT IN STABLE CONDITION AT TIME OF LEAVING UNIT.
== END 2021-02-02 13:17 | disposition home health service (06) | DRG 177 ==
LOC: M.ERS 13:13 → M.TBA-ER 15:54 → M.2W 15:54
PROVIDERS: Family Medicine; Internal Medicine Cardiovascular Disease; ADMIT Internal Medicine; ATTEND Internal Medicine
DX: J69.0 Pneumonitis due to inhalation of food and vomit (principal); K55.039 Acute (reversible) ischemia of large intestine, extent unspecified; I26.99 Other pulmonary embolism without acute cor pulmonale; K85.90 Acute pancreatitis without necrosis or infection, unspecified; N17.0 Acute kidney failure with tubular necrosis; I42.9 Cardiomyopathy, unspecified; K55.9 Vascular disorder of intestine, unspecified; J15.6 Pneumonia due to other Gram-negative bacteria; G89.29 Other chronic pain; M81.0 Age-related osteoporosis without current pathological fracture; I48.91 Unspecified atrial fibrillation; I10 Essential (primary) hypertension; E66.01 Morbid (severe) obesity due to excess calories; G47.30 Sleep apnea, unspecified; E03.9 Hypothyroidism, unspecified; K21.9 Gastro-esophageal reflux disease without esophagitis; E11.9 Type 2 diabetes mellitus without complications; Z20.822 Contact with and (suspected) exposure to COVID-19; Z90.710 Acquired absence of both cervix and uterus; Z79.899 Other long term (current) drug therapy; Z68.38 Body mass index [BMI] 38.0-38.9, adult; Z88.1 Allergy status to other antibiotic agents; Z88.5 Allergy status to narcotic agent; Z88.2 Allergy status to sulfonamides; Z88.8 Allergy status to other drugs, medicaments and biological substances

== ENCOUNTER → 2021-04-16 | Outpatient (CLI) | payer OTHER, BC ==
[~2021-04-16] MED LIST changes: +CARDIZEM CD120 MG PO; +ELIQUIS5 MG PO; +SPIRONOLACTONE25 MG PO
== END ==
LOC: M.ULTRA 04-10 15:59
PROVIDERS: ATTEND Internal Medicine Critical Care Medicine
DX: E04.2 Nontoxic multinodular goiter (principal); R60.0 Localized edema